=== PATIENT | male | born 1965 | race Caucasian/White ===

== ENCOUNTER 2022-05-02 23:10 | Emergency (ER) | payer BC ==
[~2022-05-02] VITALS: Ht 170.2 cm; Wt 79.4 kg
[2022-05-03 00:22] LABS: POTASSIUM 3.7 mmol/L (3.5-5.1)
[2022-05-03 00:24] LABS: BASOPHILS % (AUTO) 0.1 % (0.0-5.0); EOSINOPHILS % (AUTO) 1.1 % (0.0-8.0); HEMATOCRIT 40.8 % (42-54); LYMPHOCYTES % (AUTO) 22.2 % (21.0-51.0); MEAN CORPUSCULAR HEMOGLOBIN 33.1 pg (27.0-33.0); MEAN CORPUSCULAR HGB CONC 35.8 g/dL (32.0-36.0); MEAN CORPUSCULAR VOLUME 92.5 fL (79-99); MONOCYTES % (AUTO) 9.2 % (3.0-13.0); NEUTROPHILS % (AUTO) 67.1 % (40.0-77.0); PLATELET COUNT (AUTO) 198 K/uL (130-400); RED BLOOD CELL COUNT(AUTO) 4.41 MIL/uL (4.50-6.20); RED CELL DISTRIBUTION WIDTH 12.5 % (11.0-15.5); WHITE BLOOD COUNT (AUTO) 9.6 K/uL (4.8-10.8)
[2022-05-03 00:26] LABS: ALBUMIN 3.5 g/dL (3.5-5.0); BILIRUBIN,TOTAL 0.4 mg/dL (0.2-1.0)
[2022-05-03] MEDS ORDERED: KETOROLAC 60 MG VIAL (30MG/ML) IM ONE (01:30)
[2022-05-03] MEDS ORDERED: KETOROLAC 30MG VIAL (30MG/ML) ONE (01:43)
[2022-05-03] MEDS ORDERED: NAPR500T6 PO (02:28)
[2022-05-03] MEDS ORDERED: ACET-2079 PO (02:28)
[2022-05-03 02:42] VITALS: BP 135/78
== END 2022-05-03 02:45 | disposition home or self-care (01) ==
LOC: EDH 23:10
DX: R09.1 Pleurisy (principal); F41.9 Anxiety disorder, unspecified; F32.A Depression, unspecified; E78.00 Pure hypercholesterolemia, unspecified; Z90.89 Acquired absence of other organs; Z98.890 Other specified postprocedural states
CPT/HCPCS: 36415; 71045; 80053; 84484; 85025; 85378; 93005; 96372; 99284; J1885